=== PATIENT | male | born 1970 | race Caucasian/White ===

== ENCOUNTER 2017-02-17 09:40 | Emergency (ER) | payer SELFPAY ==
[2017-02-17] MEDS ORDERED: XYLOCAINE 1% 20 mL INFILTRATI ONE (11:59)
[2017-02-17] MEDS ORDERED: NACL 0.9% IR ONE (11:59)
[2017-02-17] MEDS ORDERED: NACL 0.9% 500 ML IR ONE (11:59)
[2017-02-17] MEDS ORDERED: ANCEF IM ONE (13:28)
--- NOTE | 2017-02-17 13:31 | Emergency Department Report ---
- General Chief Complaint: Wound/Laceration Stated Complaint: CUT FINGER Time Seen by Provider: 02/17/17 11:52 Source: patient Mode of arrival: Ambulatory Limitations: Language Barrier - History of Present Illness Initial Comments: Patient comes into the ER today with complaints of left thumb pain after he externally cut his left thumb with a circular saw while trying to cut some boards. Patient does state that his last tetanus shot was 2-3 years ago after he stepped on a nail. Patient denies any other complaints and states that he can still feel the end of his thumb. -: Sudden Extremity Location: Left: Hand (left thumb) Patient Tetanus UTD: Yes Context: accidental, power tool use (circular saw) Associated Symptoms: pain - Related Data Previous Rx's Medication Instructions Recorded Last Taken Type Cephalexin [Keflex] 500 mg PO QID #40 capsule 02/17/17 Unknown Rx HYDROcodone/APAP 5-325 [[place] 1 each PO Q6HR PRN #18 tablet 02/17/17 Unknown Rx 5/325] Allergies Allergy/AdvReac Type Severity Reaction Status Date / Time No Known Allergies Allergy Unverified 02/17/17 09:54 ED Review of Systems ROS: Stated complaint: CUT FINGER Other details as noted in HPI Constitutional: denies: chills, fever Eyes: denies: eye pain, eye discharge, vision change ENT: denies: ear pain, throat pain Respiratory: denies: cough, shortness of breath, wheezing Cardiovascular: denies: chest pain, palpitations Endocrine: no symptoms reported Gastrointestinal: denies: abdominal pain, nausea, diarrhea Genitourinary: denies: urgency, dysuria Musculoskeletal: arthralgia. denies: back pain, joint swelling Skin: denies: rash, lesions Neurological: denies: headache, weakness, numbness, paresthesias Psychiatric: denies: anxiety, depression Hematological/Lymphatic: denies: easy bleeding, easy bruising ED Past Medical Hx - Past Medical History Previous Medical History?: No - Surgical History Past Surgical History?: No - Social History Smoking Status: Never Smoker Substance Use Type: Alcohol - Medications Home Medications: Home Medications Medication Instructions Recorded Confirmed Last Taken Type Cephalexin [Keflex] 500 mg PO QID #40 capsule 02/17/17 Unknown Rx HYDROcodone/APAP 5-325 [[place] 1 each PO Q6HR PRN #18 tablet 02/17/17 Unknown Rx 5/325] ED Physical Exam - General Limitations: Language Barrier General appearance: alert, in no apparent distress - Head Head exam: Present: atraumatic, normocephalic - Eye Eye exam: Present: normal appearance - ENT ENT exam: Present: mucous membranes moist - Neck Neck exam: Present: normal inspection - Respiratory Respiratory exam: Present: normal lung sounds bilaterally. Absent: respiratory distress - Cardiovascular Cardiovascular Exam: Present: regular rate, normal rhythm. Absent: systolic murmur, diastolic murmur, rubs, gallop - GI/Abdominal GI/Abdominal exam: Present: soft, normal bowel sounds - Rectal Rectal exam: Present: deferred - Extremities Exam Extremities exam: Present: tenderness (left posterior thumb laceration noted between PIP and DIP joint. Laceration is multilayer with partial tendon involvement. Laceration is very irregular with multiple flaps and break off lacerations consistent with soft tissue injury. Laceration is 5 cm in length.) , normal capillary refill, joint swelling, other (patient has good range of motion in all directions.). Absent: pedal edema - Back Exam Back exam: Present: normal inspection - Neurological Exam Neurological exam: Present: alert, oriented X3 - Psychiatric Psychiatric exam: Present: normal affect, normal mood - Skin Skin exam: Present: warm, dry, intact, normal color. Absent: rash ED Course Vital Signs 02/17/17 09:50 Temperature 98.1 F Pulse Rate 60 Respiratory 18 Rate Blood Pressure 158/96 O2 Sat by Pulse 96 Oximetry - Laceration /Wound Repair Left Posterior Volar Finger Wound Location: upper extremity (left posterior thumb laceration between DIP and PIP joint. Laceration goes from lateral to medial margins of entire posterior thumb.) Wound Length (cm): 5 Wound's Depth, Shape: into muscle (partial extensor tendon involvement. Superficial arterial vessels injured as well.), irregular, flap, stellate Wound Explored: foreign body removed (small dark-colored debris removed from wound.) Irrigated w/ Saline (ccs): 120 Betadine Prep?: Yes Anesthesia: 1% Lidocaine Volume Anesthetic (ccs): 8 Wound Repaired With: sutures Suture Size/Type: 3:0, proline Number of Sutures: 13 Layer Closure?: No Sterile Dressing Applied?: Yes Progress: Patient tolerated procedure very well without any complications. After wound was closed x-ray imaging was obtained. Patient dressed in sterile pressure bandage and placed in left thumb spica splint. She was given 1 g Ancef intramuscularly here in the ER. ED Medical Decision Making - Radiology Data Radiology results: image reviewed interpreted by me: Middle phalanx irregular bone injury consistent with small injury. No through and through fracture noted to left thumb. - Medical Decision Making Patient tolerated procedure very well without any competitions. Patient was given Ancef 1 g intramuscularly here in the ER. Patient is up-to-date with his tetanus. I will refer patient to orthopedics for follow-up as patient does have an open fracture with multilayer involvement. Laceration was closed loosely here in the ER and I will continue patient on some antibiotics. I instructed patient not to be using the left thumb and to wear splint until orthopedic evaluation. Patient is in agreement with treatment plan the patient is stable for discharge. Critical care attestation.: If time is entered above; I have spent that time in minutes in the direct care of this critically ill patient, excluding procedure time. ED Disposition Clinical Impression: Fracture of thumb, left, open Disposition: DC- TO HOME OR SELFCARE Is pt being admited?: No Does the pt Need Aspirin: No Condition: Good Instructions: Suture Care (ED), Laceration (ED), Finger Laceration (ED), Thumb Fracture (ED) Prescriptions: Cephalexin [Keflex] 500 mg PO QID #40 capsule HYDROcodone/APAP 5-325 [[place] 5/325] 1 each PO Q6HR PRN #18 tablet PRN Reason: Pain Referrals: KAYLA FINN MD [Staff Physician] - 3-5 Days Forms: Work/School Release Form(ED) Time of Disposition: 13:46 Print Language: [place] CITIZEN
[2017-02-17 14:33] VITALS: BP 161/89
--- NOTE | 2017-02-18 09:20 | XRay Report ---
LEFT THUMB THREE VIEWS: 02/17/17 09:40:00 CLINICAL: Trauma with a deep laceration to the thumb. FINDINGS: An oblique comminuted minimally displaced fracture of the proximal phalanx of the thumb. No other fracture. Joint spaces are normal. No dislocation.No foreign body or soft tissue air. IMPRESSION: An acute minimally displaced traumatic closed comminuted fracture of the proximal phalanx of the thumb.
== END 2017-02-17 14:32 | disposition home or self-care (01) ==
LOC: ED 09:40
DX: S62.502B Fracture of unspecified phalanx of left thumb, initial encounter for open fracture (principal); S61.012A Laceration without foreign body of left thumb without damage to nail, initial encounter; W26.8XXA Contact with other sharp object(s), not elsewhere classified, initial encounter; Y93.89 Activity, other specified; Y92.89 Other specified places as the place of occurrence of the external cause; Y99.8 Other external cause status
CPT/HCPCS: 29125; 73140; 96372; 99284; J0690